=== PATIENT | male | born 1975 | race American Indian/Alaskan Native ===

== ENCOUNTER 2021-11-27 06:48 | Emergency (ER) | payer MEDICAID ==
[~2021-11-27] VITALS: Ht 180.3 cm; Wt 152.8 kg
[2021-11-27 07:07] VITALS: BP 158/106
[2021-11-27] MEDS ORDERED: HYDROCODONE/ACETAMINOPHEN 5/325MG TABLET PO ONE (09:00)
[2021-11-27 09:25] LABS: BASOPHILS % 0.3 % (0.0-2.0); EOSINOPHILS % 2.9 % (0.0-5.0); HEMATOCRIT. 47.3 % (42.0-52.0); HEMOGLOBIN. 15.5 g/dL (14.0-18.0); LYMPHOCYTES % 15.4 % (20.0-50.0); MEAN CORPUSCULAR HEMOGLOBIN 30.2 pg (28.0-32.0); MEAN CORPUSCULAR VOLUME 91.9 fL (80.0-94.0); MEAN PLATELET VOLUME 7.3 fl (7.4-10.4); MONOCYTES % 13.1 % (2.0-8.0); NEUTROPHILS % 68.3 % (40.0-76.0); PLATELET 273 x1000/uL (130-400); RED BLOOD CELL COUNT 5.15 mill/uL (4.7-6.1); RED CELL DISTRIBUTION WIDTH 14.3 % (11.6-14.6)
[2021-11-27 09:50] LABS: CHLORIDE 103 mEq/L (98-107)
[2021-11-27] MEDS ORDERED: LISI20TA31 MT (10:51)
[2021-11-27] MEDS ORDERED: INDO50CA98 MT (10:51)
[2021-11-27] MEDS ORDERED: HYDR-4001 MT (10:51)
[2021-11-27] MEDS ORDERED: METF-414 MT (10:51)
[2021-11-27] MEDS ORDERED: ALLO300T2 MT (10:51)
[2021-11-27] MEDS ORDERED: AMLO10TA80 MT (10:51)
== END 2021-11-27 11:05 | disposition home or self-care (01) ==
LOC: ER 06:48
DX: M10.031 Idiopathic gout, right wrist (principal); I10 Essential (primary) hypertension; E11.9 Type 2 diabetes mellitus without complications; Z79.899 Other long term (current) drug therapy
CPT/HCPCS: 36415; 73110; 80053; 84550; 85025; 99284

== ENCOUNTER 2022-04-03 01:44 | Emergency (ER) | payer MEDICAID ==
[~2022-04-03] VITALS: Ht 180.3 cm; Wt 137.3 kg
[~2022-04-03 01:44] MED LIST: ALLO300T2 MT; AMLO10TA80 MT; HYDR-4001 MT; INDO50CA98 MT; LISI20TA31 MT; METF-414 MT
[2022-04-03 03:26] LABS: BASOPHILS % 0.6 % (0.0-2.0); HEMATOCRIT. 47.3 % (42.0-52.0); HEMOGLOBIN. 15.8 g/dL (14.0-18.0); LYMPHOCYTES % 10.6 % (20.0-50.0); MEAN CORPUSCULAR HEMOGLOBIN 29.4 pg (28.0-32.0); MEAN CORPUSCULAR VOLUME 87.9 fL (80.0-94.0); MEAN PLATELET VOLUME 7.1 fl (7.4-10.4); MONOCYTES % 8.2 % (2.0-8.0); NEUTROPHILS % 79.6 % (40.0-76.0); PLATELET 390 x1000/uL (130-400); RED BLOOD CELL COUNT 5.39 mill/uL (4.7-6.1); RED CELL DISTRIBUTION WIDTH 14.8 % (11.6-14.6)
[2022-04-03 03:30] LABS: CHLORIDE 103 mEq/L (98-107)
[2022-04-03] MEDS ORDERED: KETOROLAC 30MG/ML VIAL IV ONE (04:15)
[2022-04-03 05:03] LABS: BG BASE EXCESS -0.5 mmol/L (-2.0-2.0); BG CARBOXYHEMOGLOBIN 2.3 % (0.5-1.5); BG DEOXYHEMOGLOBIN 6.7 % (0.0-5.0); BG FRACTION INSPIRED OXYGEN 21; BG HCO3 ACT 22.7 mmol/L (22.0-26.0); BG METHEMOGLOBIN 0.3 % (0.0-1.5); BG OXYGEN SATURATION 93.1 % (92.0-98.5); BG OXYHEMOGLOBIN 90.7 % (94.0-97.0); BG PCO2 33.7 mmHg (35.0-45.0); BG PH 7.446 (7.350-7.450); BG PO2 72.4 mmHg (75.0-100.0); BG SAMPLE SITE LEFT BRACHIAL; BG TOTAL HEMOGLOBIN 16.1 g/dL (12.0-18.0); BG VENT MODE ROOM AIR
[2022-04-03] MEDS ORDERED: IOHEXOL-350 100 ML BOTTLE ONE (06:00)
[2022-04-03] MEDS ORDERED: KETOROLAC 30MG/ML VIAL IV NR (06:15)
[2022-04-03] MEDS ORDERED: SODIUM CHLORIDE 0.9% 1,000 ML IV ONE ×2 (06:15→07:00)
[2022-04-03] MEDS ORDERED: IBUP-2029 MT (06:27)
[2022-04-03] MEDS ORDERED: MORPHINE SULFATE 2 MG/ML CPJ (NOT FOR IM USE) IV NR (06:30)
[2022-04-03 06:54] LABS: CLARITY URINE CLEAR (CLEAR); COLOR URINE YELLOW (YELLOW); KETONES URINE NEGATIVE (NEGATIVE); LEUKOCYTE ESTERASE URINE NEGATIVE (NEGATIVE); NITRITE URINE NEGATIVE (NEGATIVE); OCCULT BLOOD URINE NEGATIVE (NEGATIVE); PH URINE 5.5 (4.5-8.0); PROTEIN URINE NEGATIVE (NEGATIVE); SPECIFIC GRAVITY URINE 1.051 (1.005-1.030); UROBILINOGEN URINE 0.2 E.U./dL (0.2-1.0)
[2022-04-03 08:00] VITALS: BP 156/87
== END 2022-04-03 09:00 | disposition home or self-care (01) ==
LOC: ER 01:44
DX: N20.0 Calculus of kidney (principal); R06.02 Shortness of breath; I10 Essential (primary) hypertension; E11.9 Type 2 diabetes mellitus without complications; F17.210 Nicotine dependence, cigarettes, uncomplicated; Z71.6 Tobacco abuse counseling
CPT/HCPCS: 36415; 36600; 71045; 71275; 74174; 80053; 81003; 82375; 82805; 83880; 84484; 85025; 85379; 93005; 96361; 96374; 96375; 99285; 99406; J1885; J2270; Q9967